=== PATIENT | male | born 1950 | race Caucasian/White ===

== ENCOUNTER 2018-06-09 09:04 | Observation (INO) | payer MEDICARE ==
[~2018-06-09] VITALS: Ht 182.9 cm; Wt 87.6 kg
[2018-06-09] MEDS ORDERED: LIDOCAINE 2%,20 ML JEL.PF.APP MM ONE ×2 (09:30→09:33)
[2018-06-09 10:10] LABS: BASOPHILS # (AUTO) 0.01 x10^3/uL (0-0.1); BASOPHILS % (AUTO) 0 % (0-1); EOSINOPHILS # (AUTO) 0.04 x10^3/uL (0-0.4); EOSINOPHILS % (AUTO) 1 % (1-7); LYMPHOCYTES % (AUTO) 10 % (22-44); MD NO; MEAN CORPUSCULAR VOLUME 91.3 fL (81-97); MEAN PLATELET VOLUME 8.2 fL (7.4-10.4); MONOCYTES # (AUTO) 0.31 x10^3/uL (0.2-0.8); MONOCYTES % (AUTO) 6 % (2-9); NEUTROPHILS # (AUTO) 4.31 x10^3/uL (1.8-6.8); NEUTROPHILS % (AUTO) 83 % (42-75); PLATELET COUNT 261 x10^3/uL (130-400); RED BLOOD COUNT 3.55 x10^6/uL (4.38-5.82)
[2018-06-09 10:16] LABS: INTERNATIONAL NORMALIZED RATIO 1.09 (0.93-1.1); PROTHROMBIN TIME 11.2 Seconds (9.6-11.5)
[2018-06-09 10:18] LABS: ANION GAP 9 mmol/L (5-15); CALCIUM 9.7 mg/dL (8.5-10.1); CHLORIDE 110 mmol/L (98-107)
[2018-06-09 10:21] LABS: ALANINE AMINOTRANSFERASE 100 U/L (12-78); ALKALINE PHOSPHATASE 80 U/L (45-117); BILIRUBIN,TOTAL 0.4 mg/dL (0.2-1.0); CREATININE 1.27 mg/dL (0.7-1.3); TOTAL PROTEIN 8.5 g/dL (6.4-8.2)
[2018-06-09] MEDS ORDERED: CEFAZOLIN 1,000 MG ONE (11:28)
[2018-06-09] MEDS ORDERED: PROPOFOL 10 MG/ML, 20ML ONE (11:28)
[2018-06-09] MEDS ORDERED: DEXAMETHASONE 4 MG/ML, 1ML ONE (11:28)
[2018-06-09] MEDS ORDERED: ROCURONIUM 10MG/ML,5ML ONE (11:28)
[2018-06-09] MEDS ORDERED: SUCCINYLCHOLINE 20 MG/ML, 10ML ONE (11:28)
[2018-06-09] MEDS ORDERED: ONDANSETRON 2MG/ML, 2ML ONE (11:28)
[2018-06-09] MEDS ORDERED: BENA40TA55 PO (11:34)
[2018-06-09] MEDS ORDERED: HYDR-3237 PO (11:34)
[2018-06-09 11:42] LABS: MICROSCOPIC INDICATED
[2018-06-09 12:25] LABS: CULTURE INDICATED? YES
[2018-06-09] MEDS ORDERED: FENTANYL PF 100 MCG/2ML ONE ×2 (16:35→17:44)
[2018-06-09] MEDS ORDERED: ONDANSETRON 2MG/ML, 2ML IV PRN (17:00)
[2018-06-09] MEDS ORDERED: OXYcodone 5 MG/5 ML ORAL.SOL UDC PO PRN (17:00)
[2018-06-09] MEDS ORDERED: MIDAZOLAM 1 MG/ML, 2ML IV PRN (17:00)
[2018-06-09] MEDS ORDERED: ONDANSETRON ODT 8 MG PO PRN (17:00)
[2018-06-09] MEDS ORDERED: ALBUTEROL SULFATE 2.5 MG/3 ML NPPB PRN (17:00)
[2018-06-09] MEDS ORDERED: LORazepam 2 MG/ML, 1ML IVPush PRN (17:00)
[2018-06-09] MEDS ORDERED: EPHEDRINE 50 MG/ML, 1ML IVPush PRN (17:00)
[2018-06-09] MEDS ORDERED: LABETALOL 5MG/ML, 20ML IV PRN (17:00)
[2018-06-09] MEDS ORDERED: MEPERIDINE/PF 25MG/0.5ML IVPush PRN (17:00)
[2018-06-09] MEDS ORDERED: hydrALAzine 20 MG/ML, 1ML IV PRN (17:00)
[2018-06-09] MEDS ORDERED: MORPHINE SULFATE 4 MG/ML, 1ML IVPush PRN (17:00)
[2018-06-09] MEDS ORDERED: HYDROmorphone 1 MG/ML, 1ML IV PRN (17:00)
[2018-06-09] MEDS ORDERED: PROMETHAZINE 25 MG/ML, 1ML IV PRN (17:00)
[2018-06-09] MEDS ORDERED: HALOPERIDOL 5 MG/ML IV PRN (17:00)
[2018-06-09] MEDS ORDERED: PROMETHAZINE 12.5 MG SUPP PR PRN (17:00)
[2018-06-09] MEDS: CEFAZOLIN PMX 1GM/50ML 50 ML IV SCH (17:30)
[2018-06-09] MEDS ORDERED: OXYcodone 5 MG/5 ML ORAL.SOL UDC ONE (17:44)
[2018-06-09] MEDS: FENTANYL PF 100 MCG/2ML IV PRN ×2 (17:47→17:57)
[2018-06-09 20:02] VITALS: BP 134/81
[2018-06-09] MEDS ORDERED: OPIUM/BELLADONNA SUPP.RECT 16.2-60 MG PR PRN (21:00)
[2018-06-09] MEDS ORDERED: TEMAZEPAM 30 MG CAPSULE PO PRN (21:00)
[2018-06-09] MEDS ORDERED: HYDROcodone/APAP 5/325 TABLET PO PRN (21:00)
[2018-06-10] MEDS: CEFAZOLIN PMX 1GM/50ML 50 ML IV SCH ×2 (00:37→08:44)
[2018-06-10 04:01] VITALS: BP 106/61
[2018-06-10 08:22] VITALS: BP 127/70
[2018-06-10] MEDS ORDERED: BENAZEPRIL 20 MG TABLET PO SCH (09:00)
[2018-06-10 13:25] VITALS: BP 122/68
== END 2018-06-10 15:00 | disposition home or self-care (01) ==
LOC: ED 09:28 → EDIP 15:13 → 4NOR 18:39 → DCLOUNGE 06-10 14:53
PROVIDERS: ADMIT Urology; ATTEND Urology
DX: R31.0 Gross hematuria (principal); C22.9 Malignant neoplasm of liver, not specified as primary or secondary; C67.9 Malignant neoplasm of bladder, unspecified; M06.9 Rheumatoid arthritis, unspecified; Z85.05 Personal history of malignant neoplasm of liver
CPT/HCPCS: 36415; 52001; 52214; 80053; 81001; 85025; 85610; 85730; 87086; 93005; 96365; 96366; 99285; G0378; J0330; J0690; J1100; J2405; J2704; J3010